=== PATIENT | male | born 1985 | race Caucasian/White ===

== ENCOUNTER 2023-03-09 15:36 | Emergency (ER) | payer BC, SELFPAY ==
--- NOTE | ~2023-03-09 | XR_ITS ---
EXAMINATION: XR abdomen/kub 1V INDICATION: Right flank pain and hematuria TECHNIQUE: Supine views of the abdomen were obtained on 2 radiographs. COMPARISON: None FINDINGS: There are calcifications in the right pelvis which measure up to 3 mm. The bowel gas patter n is normal. The visualized osseous structures are unremarkable. IMPRESSION: 1. Right pelvic calcifications which have the appearance of phleboliths however a distal ureteral sto ne is not excluded. Consider further evaluation with CT. Reviewed, dictated and finalized at location F. IMPRESSION: 1. Right pelvic calcifications which have the appearance of phleboliths however a distal ureteral stone is not excluded. Consider further evaluation with CT.
[2023-03-09 16:04] VITALS: BP 120/82; PULSE 68; RESP 18; TEMP 36.2; O2SAT 98
--- NOTE | 2023-03-09 16:37 | ED.ABDPAIN ---
HPI - Abdominal Pain General Chief Complaint: Abdominal Pain Stated Complaint: rt side pain Time Seen by Provider: 03/09/23 16:10 Source: patient Mode of arrival: ambulatory Limitations: no limitations History of Present Illness HPI narrative: Al is a 37-year-old male patient presenting to clinic today with complaints of right upper side and back pain times 2-3 days. States that the pain is sharp and comes and goes. Last bowel movement was couple hours prior to arrival and was normal. He denies any blood in his stool or any nausea or vomiting. No history of any abdominal issues. He denies any fever or chills. Denies any hematuria or urinary symptoms. Related Data Allergies Allergy/AdvReac Type Severity Reaction Status Date / Time No Known Allergies Allergy Verified 03/09/23 16:03 Review of Systems Review of Systems: Pertinent positives per HPI. Patient denies any fever, chills, rash, headache, visual changes, dizziness, cough, runny nose, sore throat, shortness of breath, chest pain, palpitations, nausea, vomiting, diarrhea, constipation, or any urinary issues. PMFSH Comments At the time of my signature, I reviewed and agree with the nursing past medical, surgical, social, and family history. There is no relevant family history pertinent to the patient complaint. Exam Narrative: General: Well-developed, well nourished, in no apparent distress. Head: Normocephalic, atraumatic. Cardio: Regular rate and rhythm, s1 and s2 normal, no murmur appreciated. Resp: Clear to auscultation bilaterally, no rhonchi, rales, wheezing or rubs. Abdomen: Soft, pliable, bowel sounds present in all quadrants, mild tender to palpation over the right lateral abdomen and right flank, no organomegly, no CVAT tenderness. Course Course Emergency Course: Portions of this record may have been created with voice recognition software. Level of Care: Express Care Visit Vital Signs Vital signs: Vital Signs Temperature 36.2 C L 03/09/23 16:04 Pulse Rate 68 03/09/23 16:04 Respiratory Rate 18 03/09/23 16:04 Blood Pressure 120/82 03/09/23 16:04 Pulse Oximetry 98 03/09/23 16:04 Oxygen Delivery Room Air 03/09/23 16:04 Temperature 36.2 C L 03/09/23 16:04 Pulse Rate 68 03/09/23 16:04 Respiratory Rate 18 03/09/23 16:04 Blood Pressure 120/82 03/09/23 16:04 Pulse Oximetry 98 03/09/23 16:04 Oxygen Delivery Room Air 03/09/23 16:04 Vital signs reviewed MDM - Abdominal Pain MDM Narrative Medical decision making narrative: At the time of visit patient is resting comfortably on the exam table. UA shows 2+ blood in his urine. KUB x-ray shows possible phleboliths versus distal ureteral stone. Radiologist recommends CT for further evaluation. Patient denies current pain. Is riding his bike today and has no other means of transport to get to [place] [facility]. I will send in prescription for Toradol and Flomax. Patient states he will have transportation tomorrow morning. Recommend following up with PCP or going to the emergency room tomorrow to have CT scan done if problems persist and he has not passed any stone tonight. Differential Diagnosis Differential diagnosis: Likely abdominal pain, acute appendicitis, calculus of kidney, constipation, pancreatitis and other (Ureterolithiasis) Imaging Data Radiologist's impression: ITS Impressions Abdomen X-Ray 03/09/23 16:52 IMPRESSION: 1. Right pelvic calcifications which have the appearance of phleboliths however a distal ureteral stone is not excluded. Consider further evaluation with CT. [address] [id number] XRay Report Signed Patient: Al Sarabia : 1985 MR#: [id number] Age/Sex: 37 / M Acct:[id number] Loc: [facility]? ? ADM Date: 03/09/23Attending Dr: Ordering Physician: Chaparro [place] APRN Date of Service: 03/09/23 Procedure(s): XR abdomen/kub 1V Acc
== END 2023-03-09 17:15 | disposition home or self-care (01) ==
PROVIDERS: Emergency Provider Nurse Practitioner Family
DX: R10.9 Unspecified abdominal pain (principal); R31.9 Hematuria, unspecified
CPT/HCPCS: 74018; 99213; G0463

== ENCOUNTER 2023-03-10 12:22 | Emergency (ER) | payer BC, SELFPAY ==
--- NOTE | ~2023-03-10 | CT_ITS ---
EXAMINATION: CT abdomen pelvis wo con DATE: 03/10/2023 14:43 INDICATION: Right flank pain and hematuria TECHNIQUE: Computed tomography (CT) of the abdomen and pelvis was performed without intravenous contr ast. Automated exposure control and iterative reconstruction technique were employed. The dose-length product was 844.93 mGy-cm. COMPARISON: None FINDINGS: Minimal dependent atelectasis in the bilateral lower lobes. Heart size is normal. No pericardial or p leural effusion. Liver, gallbladder, spleen, pancreas and bilateral adrenal glands are normal. Kidney s and ureters are normal with no urolithiasis, hydroureteronephrosis or perinephric/ureteral strandin g. Bowels including the appendix are normal. Bladder is normal. Small fat-containing left inguinal he rnia. No free intraperitoneal gas or fluid. No pathologically enlarged abdominal or pelvic lymphadeno kylee. Chronic mild anterior wedging at T11 and T12. Moderate lower thoracic and mild to moderate lum bar spondylosis. IMPRESSION: 1. No urolithiasis or acute intra-abdominal/pelvic process. Reviewed, dictated and finalized at location A.
[2023-03-10 12:27] VITALS: BP 138/90; PULSE 73; RESP 16; TEMP 36.5; O2SAT 100
[2023-03-10 13:14] LABS: Basophils Absolute Auto 0.1 K/mm3 (0.0-0.1); Basophils Percent Auto 1.1 % (0.2-1.2); Eosinophils Absolute Auto 0.3 K/mm3 (0-0.3); Eosinophils Percent Auto 3.5 % (0-4.4); Hematocrit 48.4 % (42.0-52.0); Hemoglobin 16.9 g/dL (14.0-18.0); Immature Granulocyte Absolute 0.01 K/mm3 (0.00-0.031); Immature Granulocyte Percent A 0.1 % (0-0.5); Lymphocytes Absolute Auto 2.74 K/mm3 (0.9-3.2); Lymphocytes Percent Auto 36.6 % (18.3-44.2); Mean Corpuscular HGB Conc 34.9 g/dl (32-36); Mean Corpuscular Hemoglobin 32.5 pg (26-34); Mean Corpuscular Volume 93.1 fl (80-100); Mean Platelet Volume 8.6 fl (7.4-10.4); Monocytes Absolute Auto 0.8 K/mm3 (0.1-0.6); Neutrophils Absolute Auto 3.6 K/mm3 (1.3-6.7); Neutrophils Percent Auto 48.7 % (45.5-73.1); Platelet Count Result 299 k/mm3 (150-375); Red Cell Distribution Width 11.9 % (11.5-14.5); White Blood Count 7.5 K/mm3 (4.5-10.0)
[2023-03-10 13:24] LABS: Appearance Urine Cloudy (Clear); Bacteria Urine None Seen /hpf; Bilirubin Urine Negative (Negative); Blood Urine Trace (Negative); Color Urine Yellow (Yellow); Glucose Urine UA Negative (Negative); Ketones Urine Negative (Negative); Leukocyte Esterase Ur Trace LEU/UL (Negative); Nitrate Urine Negative (Negative); Non Pathogenic Casts 0-2; Protein Urine Negative (Negative); Squamous Epithelial Cell Urine None seen /hpf (Few); Urobilinogen Urine 0.2 mg/dL (<2.0); WBC Urine 0-5 /hpf; pH Urine 7.5 (5.0-9.0)
[2023-03-10 13:26] LABS: Alanine Aminotransferase 32 U/L (6-50); Albumin Level 4.6 g/dL (3.5-5.1); Alkaline Phosphatase 67 U/L (38-126); Anion Gap 8 mmol/L (8-16); Aspartate Amino Transferase 32 U/L (17-59); Bilirubin,Total 0.5 mg/dL (0.2-1.3); Blood Urea Nitrogen 17 mg/dL (9-20); Calcium 9.2 mg/dL (8.4-10.2); Carbon Dioxide 26 mmol/L (22-30); Chloride 103 mmol/L (98-107); Estimated CRCL calculation 106 ml/min; Estimated Glomerular Filt Rate > 60; Glucose 98 mg/dL (65-110); Lipase 129 U/L (23-300); Potassium 4.4 mmol/L (3.4-5.0); Sodium 137 mmol/L (137-145)
--- NOTE | 2023-03-10 13:29 | ED.ABDPAIN ---
HPI - Abdominal Pain General Chief Complaint: Abdominal Pain Stated Complaint: abdominal pain Time Seen by Provider: 03/10/23 12:38 History of Present Illness HPI narrative: Patient is a 37-year-old male presenting with right flank pain. Patient states that for the last several days he has had intermittent severe right flank pain. States he went to urgent care yesterday and x-rays were obtained. He was told he might have a kidney stone. He was told to come to the ER if his pain persists. Patient states that currently he does not have pain but it comes and goes. Denies any nausea or vomiting. Denies constipation or diarrhea. No dysuria or hematuria. No fevers, headache, chest pain, shortness of breath, cough. Related Data Home Medications Medication Instructions Recorded Confirmed No Home Medications 03/10/23 03/10/23 Allergies Allergy/AdvReac Type Severity Reaction Status Date / Time No Known Allergies Allergy Verified 03/10/23 13:01 Review of Systems Review of Systems: All systems reviewed & are unremarkable except as noted in HPI and below Exam Narrative: GENERAL: Well-appearing, well-nourished, and in no acute distress. HEAD: Normocephalic, atraumatic. EYES: PERRLA and EOMI. ENT: Nares clear, no rhinorrhea or epistaxis. Mucous membranes moist. NECK: Supple. CHEST: Clear to auscultation. No respiratory distress. HEART: Regular rate and rhythm. No murmur heard. Normal peripheral pulses. ABDOMEN: Soft, nontender, nondistended, no CVA tenderness EXTREMITIES: Normal range of motion. No edema. SKIN: Warm, dry, no rash. NEURO: No focal deficits. Alert and oriented x3. PSYCH: Normal mood and affect. Course Vital Signs Vital signs: Vital Signs Temperature 97.7 F 03/10/23 12:27 Pulse Rate 73 03/10/23 12:27 Respiratory Rate 16 03/10/23 12:27 Blood Pressure 138/90 03/10/23 12:27 Pulse Oximetry 100 03/10/23 12:27 Oxygen Delivery Room Air 03/10/23 12:27 Temperature 97.7 F 03/10/23 12:27 Pulse Rate 71 03/10/23 16:18 Respiratory Rate 18 03/10/23 16:18 Blood Pressure 144/100 H 03/10/23 16:18 Pulse Oximetry 100 03/10/23 16:18 Oxygen Delivery Room Air 03/10/23 12:27 MDM - Abdominal Pain MDM Narrative Medical decision making narrative: Patient is a 37-year-old male presenting with right flank pain for several days. Vitals are within normal limits. Exam is remarkable for the above. Abdomen is soft and benign. Patient is declining pain medications at this time. Fluids have been ordered. Blood work is unremarkable. UA with 3-5 RBCs, trace leuk esterase. No WBCs or nitrates. CT abdomen pelvis shows no acute abnormalities. No evidence of kidney stones. Appendix appears normal. On reevaluation, patient is sitting comfortably. He declined fluids. States that his pain has been improving. Discussed the reassuring work-up with the patient. Advised Tylenol and ibuprofen as needed for pain. Patient states that he recently changed insurance and does not have a PCP so we will provide this number. Appropriate return precautions given. Patient voiced understanding and is agreeable with plan. Discharged in stable condition. Differential Diagnosis Differential diagnosis: Likely abdominal pain, acute appendicitis, calculus of kidney, constipation and gastroenteritis Lab Data 03/10/23 13:07 03/10/23 13:07 Labs: Lab Results 03/10/23 03/10/23 03/10/23 Range/Units 13:07 13:07 13:12 WBC 7.5 (4.5-10.0) K/mm3 RBC 5.20 (4.6-6.20) M/mm3 Hgb 16.9 (14.0-18.0) g/dL Hct 48.4 (42.0-52.0) % MCV 93.1 (80-100) fl MCH 32.5 (26-34) pg MCHC 34.9 (32-36) g/dl RDW 11.9 (11.5-14.5) % Plt Count 299 (150-375) k/mm3 MPV 8.6 (7.4-10.4) fl Immature Gran % (Auto) 0.1 (0-0.5) % Neut % (Auto) 48.7 (45.5-73.1) % Lymph % (Auto) 36.6 (18.3-44.2) % [place] % (Auto) 10.0 H (2.6-8.5) % Eos % (Auto)
[2023-03-10 13:33] LABS: Add Urine Microscopic? YES
[2023-03-10 16:18] VITALS: BP 144/100; PULSE 71; RESP 18; O2SAT 100
== END 2023-03-10 16:20 | disposition home or self-care (01) ==
PROVIDERS: Emergency Provider Emergency Medicine
DX: R10.9 Unspecified abdominal pain (principal)
CPT/HCPCS: 36415; 74176; 80053; 81001; 83690; 85025; 99284

== ENCOUNTER 2025-02-19 13:05 | Emergency (ER) | payer SELFPAY ==
[2025-02-19 13:23] VITALS: BP 127/88; PULSE 100; RESP 15; TEMP 37.6; O2SAT 100
--- NOTE | 2025-02-19 13:57 | ED.URI ---
HPI - URI/Sore Throat General Chief Complaint: Upper Respiratory Infection Stated Complaint: needing work note Time Seen by Provider: 02/19/25 13:53 Source: patient Mode of arrival: ambulatory Limitations: no limitations History of Present Illness HPI Narrative: Patient is a 39 y/o male who presents to the ED with c/o URI sx's. Patient reports he has been sick for the last 2-3 days with URI symptoms. Complains of cough, congestion, chills, fevers, myalgias, headache. Notes he is feeling improved today, but he has had to call off work a couple days and is here requesting a work note. Patient does mention that his mother recently . He was her primary plant care worker. He has been very lonely since her passage. Became tearful when talking about her. 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 Denies any SI/HI. Related Data Allergies Allergy/AdvReac Type Severity Reaction Status Date / Time No Known Allergies Allergy Verified 03/10/23 13:01 Review of Systems Review of Systems: All systems reviewed & are unremarkable except as noted in HPI. All systems reviewed & are unremarkable except as noted in HPI and below Exam Narrative: GENERAL: Well appearing, well-nourished, non-toxic, in no acute distress. HEAD: Normocephalic, atraumatic. RESPIRATORY: Airway patent, respirations nonlabored. Clear to auscultation bilaterally, no rales, rhonchi, wheezing. No significant focal lung sounds. CARDIOVASCULAR: Regular rate and rhythm without murmurs, rubs, or gallops. MUSCULOSKELETAL: Moves all extremities. No gross deformities. SKIN: Warm, dry, normal color. NEURO: A&O X3. Speech clear. PSYCHIATRIC: Labile mood, intermittently tearful. Normal interaction. Course Vital Signs Vital signs: Vital Signs Temperature 99.7 F H 02/19/25 13:23 Pulse Rate 100 02/19/25 13:23 Respiratory Rate 15 02/19/25 13:23 Blood Pressure 127/88 02/19/25 13:23 Pulse Oximetry 100 02/19/25 13:23 Temperature 99.7 F H 02/19/25 13:23 Pulse Rate 100 02/19/25 13:23 Respiratory Rate 15 02/19/25 13:23 Blood Pressure 127/88 02/19/25 13:23 Pulse Oximetry 100 02/19/25 13:23 MDM - URI/Sore Throat MDM Narrative Medical decision making narrative: Patient presented to ED with several day history of URI symptoms. Reports he is feeling improved today, but requesting work note. Viral swabs were obtained. Patient declined chest x-ray. States he really just wants a work note. States he wants to go home and take a nap. Will be given my chart info to look up results at home. Given work note. Patient did admit to feeling lonely and somewhat increasingly depressed after his mother's recent . He is denying any SI or HI. He has reach out to mental health team for follow-up. He declined wanting crisis evaluation today. Do not feel he is a harm to himself or anyone else at this time. Given return precautions. Patient in agreement with plan. Discharged in stable condition. Medical Records Attestation: I reviewed the patient's medical records. Lab Data Attestation: I reviewed the patient's lab results. Labs: Lab Results 02/19/25 Range/Units 13:55 Influenza A (RT-PCR) Positive A (Negative) Influenza B (RT-PCR) Negative (Negative) RSV (RT-PCR) Negative (Negative) SARS-CoV-2 RNA (RT-PCR) Negative (Negative) Discharge Plan Discharge Clinical Impression: Upper respiratory infection Qualifiers: URI type: unspecified URI Qualified Code(s): J06.9 - Acute upper respiratory infection, unspecified Patient Disposition: Home, Self-Care Condition: Stable Instructions: Antibiotic Form, Upper Respiratory Infection (ED), Viral Syndrome (ED), Cold Symptoms (ED) Additional Instructions: Utilize the [facility] portal to look up the results of your viral swabs. Stay well-hydrated at home. Recommend electrolyte rich fluids, Gatorade, Pedialyte, body armor. Utilize Tessalon Perles as needed for cough. Recommend Tylenol and Ibuprofen for discomfort and/or fevers. Recommend [id number] cough and cold medicines for symptom relief as needed: Delsym, Mucinex, DayQuil, NyQuil, Sudafed, Robitussin, TheraFlu. Follow with primary care doctor upon resolution of symptoms. Return to the ED if you experience chest pain, difficulty breathing, unable to keep down food or drink, severe pain, or any other symptoms of concern. Patient Language: Kuwaiti Prescriptions: New benzonatate 200 mg capsule 200 mg PO TID PRN (Reason: cough) Qty: 15 0RF Follow-up/Referrals: UNKNOWN,DOCTOR [Primary Care Provider] - Stand Alone Forms: Work/School Release IP Time of Disposition: 14:07
--- OUTSIDE RECORDS SUMMARY | 2025-02-19 13:58 | XMS_ITS | Continuity of Care Document ---
Author Organization [facility] Address [address] [place] [address] [address] [place] [address] Phone Care Team Providers Care Content Engineer Name Role Phone Doisy, Edward Unavailable Unavailable Advance Directives Directive Yes / No Effective Date File Name No Information Encounters Encounter Description Practice Location Reason(s) For Visit Diagnoses Date Provider Providers Copied on Encounter [facility], [address], [place], [place], [id number], [place] tel:[phone] SEC [facility] No Information Sep-2 2-200 6 Doisy Edward. [address] [facility] , [address], [place], [address], [place]. tel:[phone] Family History Family Member Type Diagnosis Age At Onset No Information Payers Payer name Insurance type Covered democrat ID Authoriza tion(s) No Information Social History [...]
[2025-02-19 14:40] LABS: Influenza A QL RT-PCR Positive (Negative); Influenza B QL RT-PCR Negative (Negative); RSV RNA, RT-PCR Negative (Negative); SARS-CoV-2 RNA PCR Negative (Negative)
--- OUTSIDE RECORDS SUMMARY | 2025-02-19 14:46 | XMS_ITS | Continuity of Care Document ---
Author Organization [facility] Address [id number] [place] [address] [address] [place] [address] Phone Care Team Providers Care M48 M60 Armor Crewman Name Role Phone Doisy, Edward Unavailable Unavailable Advance Directives Directive Yes / No Effective Date File Name No Information Encounters Encounter Description Practice Location Reason(s) For Visit Diagnoses Date Provider Providers Copied on Encounter [facility], [address], [place], [place], [id number], [place] tel:[phone] [facility] No Information Sep-2 2-200 6 Doisy Edward. [address] [facility] , [address], [place], [address], [place]. tel:[phone] Family History Family Member Type Diagnosis Age [...]
== END 2025-02-19 14:58 | disposition home or self-care (01) ==
PROVIDERS: Emergency Provider Physician Assistant
DX: J06.9 Acute upper respiratory infection, unspecified (principal); Z20.822 Contact with and (suspected) exposure to COVID-19
CPT/HCPCS: 87637; 99283

== ENCOUNTER 2025-08-20 22:08 | Emergency (ER) | payer SELFPAY ==
--- OUTSIDE RECORDS SUMMARY | 2006-08-17 06:00 | XMS_ITS | Continuity of Care Document ---
Author Organization [facility] Address [id number] [place] [address] [address] [place] [address] Phone Care Team Providers Care Assembler Show Motor Name Role Phone Doisy, Edward Unavailable Unavailable Advance Directives Directive Yes / No Effective Date File Name No Information Encounters Encounter Description Practice Location Reason(s) For Visit Diagnoses Date Provider Providers Copied on Encounter [facility], [address], [place], [place], [id number], [place] tel:[phone] SEC [facility] No Information Sep-2 2-200 6 Doisy Edward. [address] , [address], [place], [address], [place]. tel:[phone] Family History Family Member Type Diagnosis Age At Onset No Information Payers Payer name Insurance type Covered constitution party ID Authoriza tion(s) No Information Social History Type Description Quantity Date Captured Comments Sex Male Smoking Status No Information Chief Complaint And Reason For Visit No Information Reason For Referral Reason For Referral No Information History Of Present Illness Encounter Date Complaint History Of Prese nt Illness No Information Functional Status Date Functional Assessmen t No Information Instructions Date Instruction Additional Infor mation No Information Assessments Type Assessment Date No Information Patient Care Teams Name Effective Dates (start - stop) Status Members No Information
--- NOTE | ~2025-08-20 | CT_ITS ---
CT HEAD NON-CONTRAST Clinical History: worst headache of my life Comparison: 04/06/2016 Technique: Unenhanced axial images skull base to vertex Coronal, sagittal reformats CT images acquired with automatic exposure control for dose reduction DLP: 681 mGy-cm Findings: Sulci, ventricles: Unremarkable. No intracerebral hemorrhage. No evidence acute territorial infarct. No mass effect, midline shift. Bony calvarium intact. Visualized paranasal sinuses: Clear. Mastoid air cells: Clear. IMPRESSION: 1. No acute intracranial findings. Reviewed, dictated and finalized at location R.
[2025-08-20 22:10] VITALS: BP 157/138; PULSE 102; RESP 18; TEMP 36.8; O2SAT 100
[2025-08-21 00:05] VITALS: BP 199/148; PULSE 92; RESP 18; O2SAT 100
[2025-08-21 00:21] VITALS: PULSE 96; RESP 18; O2SAT 99
[2025-08-21 01:00] VITALS: BP 173/118; PULSE 92; RESP 18; O2SAT 97
[2025-08-21] MEDS: SODIUM CHLORIDE 0.9% IV 1,000 ML 999 ML IV CONT (01:04)
[2025-08-21] MEDS: dexAMETHasone SOD PHOS INJ 10 MG/ML 1 ML VIAL IV PUSH (01:05)
[2025-08-21] MEDS: METOCLOPRAMIDE HCL INJ 10 MG/2 ML VIAL IV PUSH (01:05)
--- NOTE | 2025-08-21 01:13 | ED_ITS ---
HPI - Headache General Chief Complaint: Headache Stated Complaint: headache Time Seen by Provider: 08/21/25 00:08 History of Present Illness HPI Narrative: Patient is a 40-year-old male who presents to the ER with complaints of a 5 day long migraine. He reports this is the worst headache he has ever had in his life. Patient endorses a history of migraines since he was a child. He endorses visual changes this morning but reports those have resolved. Patient denies any other pertinent medical history relevant to this ER visit. He denies any nausea and vomiting, numbness and tingling, mastoid tenderness, or neck stiffness. He does endorse intermittent neck pain associated with the headache. Patient denies any history of high blood pressure although his blood pressure is elevated upon arrival to the emergency department. Related Data Allergies Allergy/AdvReac Type Severity Reaction Status Date / Time No Known Allergies Allergy Verified 03/10/23 13:01 Review of Systems Review of Systems: All systems reviewed & are unremarkable except as noted in HPI and below Exam Narrative: GENERAL: Ill appearing, well-nourished, non-toxic, in acute distress due to pain. HEAD: Normocephalic, atraumatic. NECK: Supple. No adenopathy, no masses. RESPIRATORY: Airway patent, respirations nonlabored. Clear to auscultation bilaterally, no rales, rhonchi, wheezing. CARDIOVASCULAR: Regular rate and rhythm without murmurs, rubs, or gallops. Peripheral pulses 2+ and equal bilaterally. ABDOMINAL: Soft, nontender, nondistended, no hepatosplenomegaly. Normoactive BS. MUSCULOSKELETAL: Moves all extremities. Strength/ROM intact without gross deformities. SKIN: Warm, dry, normal color. No rashes. NEURO: A&O X3. Speech clear. Cranial nerves II-XII intact. No ataxic movements. PSYCHIATRIC: Appropriate mood and affect. Normal interaction. Course Vital Signs Vital signs: Vital Signs Temperature 36.8 C 08/20/25 22:10 Pulse Rate 102 H 08/20/25 22:10 Respiratory Rate 18 08/20/25 22:10 Blood Pressure 157/138 H 08/20/25 22:10 Pulse Oximetry 100 08/20/25 22:10 Oxygen Delivery Room Air 08/20/25 22:10 Temperature 36.8 C 08/20/25 22:10 Pulse Rate 96 08/21/25 00:21 Respiratory Rate 18 08/21/25 00:21 Blood Pressure 157/138 H 08/20/25 22:10 Pulse Oximetry 99 08/21/25 00:21 Oxygen Delivery Room Air 08/21/25 00:21 MDM - Headache MDM Narrative Medical decision making narrative: Patient is a 40-year-old male who presents to the ER with complaints of a 5 day long migraine. He reports this is the worst headache he has ever had in his life. Patient endorses a history of migraines since he was a child. He endorses visual changes this morning but reports those have resolved. Patient denies any other pertinent medical history relevant to this ER visit. He denies any nausea and vomiting, numbness and tingling, mastoid tenderness, or neck stiffness. He does endorse intermittent neck pain associated with the headache. Patient denies any history of high blood pressure although his blood pressure is elevated upon arrival to the emergency department. Labs Ordered: UA, UDS Imaging Ordered: CT head Medications Ordered: Toradol 15 mg IV, Benadryl 25 mg IV, Decadron 10 mg IV, 1 L normal saline IV bolus, Reglan 10 mg IV, magnesium sulfate 1 g IV Results: CT head scan indicates no acute intracranial hemorrhage. No midline shift or mass effect. The territorial ardon-white matter differentiation is maintained throughout. The ventricles and sulci are commensurate with age. Diagnosis: Migraine headache Patient Education/Shared MDM: Results of imaging shared with patient. He endorses significant improvement of symptoms following medication administration. Patient's blood pressure has also dropped down into the 150s -170s/100-110s range following pain medication administration, but pt was given a dose of Hydralazine IV to get his numbers into a more normal range. Patient strongly advised to maintain hydration status upon discharge and follow-up with his PCP as soon as possible regarding his high blood pressure readings. He will be discharged home with a prescription for Zofran and lisinopril p.o. Strict re turn precautions provided. Patient verbalized understanding and is in agreement with plan. Vital signs stable at time of discharge. All questions answered. Differential Diagnosis Differential diagnosis: Likely migraine, tension headache, subarachnoid hemorrhage, headache and sinusitis Imaging Data Attestation: I personally reviewed and interpreted this imaging study as follows: Radiologist's impression: CT head scan indicates no acute intracranial hemorrhage. No midline shift or mass effect. The territorial ardon-white matter differentiation is maintained throughout. The ventricles and sulci are commensurate with age. Discharge Plan Discharge Clinical Impression: Migraine, High blood pressure Patient Disposition: Home Condition: Stable Instructions: Antibiotic Form, Migraine Headache (ED), Hypertension (ED) Additional Instructions: Please return to the ER with any worsening symptoms. Follow-up with primary care provider as soon as possible regarding your high blood pressure readings in the ER. Take all medications as prescribed. You may use Tylenol and ibuprofen for pain control. Please take Zofran as needed for nausea. Patient Language: Bengali Prescriptions: New lisinopril 10 mg tablet 10 mg PO DAILY Qty: 30 0RF ondansetron 4 mg tablet,disintegrating 4 mg PO Q8H Qty: 30 0RF No Action benzonatate 200 mg capsule 200 mg PO TID PRN (Reason: cough) Qty: 15 0RF Follow-up/Referrals: Koko Maher MD [Physician, Family Practice] Referral Note: primary care provider UNKNOWN,DOCTOR [Primary Care Provider] Stand Alone Forms: Work/School Release IP Time of Disposition: 02:45
[2025-08-21] MEDS: MAGNESIUM SULF 1 GM/D5W 100 ML 1 GM/100 ML BAG IVPB (01:18)
[2025-08-21 02:00] VITALS: BP 167/113; PULSE 80; RESP 18; O2SAT 99
--- NOTE | 2025-08-21 02:35 | PC.NURSE ---
Pt asked multiple times to provide a urine sample but is not alert enough to do so. EDP notified.
[2025-08-21] MEDS: KETOROLAC 15 MG/ML VIAL (*BKC) IV PUSH (02:40)
[2025-08-21 03:10] LABS: Add Urine Microscopic? YES; Appearance Urine Clear (Clear); Glucose Urine UA Negative (Negative); Leukocyte Esterase Ur Negative LEU/UL (Negative); Nitrate Urine Negative (Negative); Non Pathogenic Casts 0-2; Specific Grav Ur 1.012 (1.001-1.035)
[2025-08-21 03:22] LABS: Cannabinoid Screen Urine Positive (Negative)
[2025-08-21 03:41] VITALS: BP 182/120; PULSE 90; RESP 18; O2SAT 99
== END 2025-08-21 03:42 | disposition home or self-care (01) ==
PROVIDERS: Emergency Provider Registered Nurse
DX: G43.909 Migraine, unspecified, not intractable, without status migrainosus (principal); I10 Essential (primary) hypertension
CPT/HCPCS: 70450; 80307; 81001; 96365; 96375; 99284; A9270; J0360; J1100; J1200; J1885; J2765; J3475; J7030